=== PATIENT | female | born 1955 | race Two or more races ===

== ENCOUNTER → 2021-03-08 | Outpatient (CLI) | payer MEDICARE, MEDICAID ==
[~2021-03-08] MED LIST: AMIT25TA PO; METF100010 PO; OMEP40CA7 PO; OXYC1TAB15 PO; OXYC1TAB17 PO; OXYC1TAB19 PO; PIOG30TA41 PO; SULF1TAB24 PO
--- NOTE | 2021-03-08 10:36 | RAD ---
EXAM: Bilateral digital diagnostic mammogram with tomosynthesis; bilateral breast sonogram. HISTORY: 65-year-old female presents for evaluation of bilateral breast pain months status post reduc tion plasty surgery.. TECHNIQUE: Full-field digital craniocaudal and mediolateral oblique 2D and 3D tomosynthesis images of both breasts are obtained for evaluation. Computer aided detection was applied. Sonographic imaging of both breasts targeted to sites of reported pain was also performed. COMPARISON: 01/01/2019, 03/17/2017, 10/23/2014 BREAST PARENCHYMAL DENSITY: Level A - Mostly fat. FINDINGS: There are postoperative changes within the periareolar and posterior bilateral breasts cons istent with the reported history of interval reduction mammoplasty surgery. There is no new suspiciou s mass, calcification or architectural distortion. There are stable small circumscribed nodular densi ties within the right greater than left breast. The absence of significant interval record changer assembler a gre ater than 6 year interval favors a benign etiology such as cysts or intramammary lymph nodes. Sonographic imaging of both breasts demonstrates no suspicious finding within the site of pain along reduction plasty scars. There is no mass or cyst. There is no hematoma or abscess. There are benign-a ppearing axillary lymph nodes. IMPRESSION: 1. No new suspicious mammographic or sonographic finding. 2. Findings consistent with interval reduction mammoplasty surgery. 3. BI-RADS Category 2: Benign finding(s). Annual mammography is recommended. If your mammogram demonstrates that you have dense breast tissue, which could hide abnormalities, and if you have other risk factors for breast cancer that have been identified, you might benefit from s upplemental screening tests that may be suggested by your ordering physician. Dense breast tissue, i n and of itself, is a relatively common condition. This information is not provided to cause undue c oncern, but rather to raise your awareness and to promote discussion with your physician regarding th e presence of other risk factors, in addition to dense breast tissue. A report of your mammography re sults will be sent to you and your physician. You should contact your physician if you have any ques tions or concerns regarding this report. Mammography is a sensitive method for finding small breast cancers, but it does not detect them all a nd is not a substitute for careful clinical examination. A negative mammogram does not negate a clin ically suspicious finding and should not result in delay in biopsying a clinically suspicious abnorma lity. PQRS compliance statement - Patient information was entered into a reminder system with a target due date for the next mammogram. "Our facility is accredited by the [employer] Mammography [employer]." Electronically signed by: Mouna Bassett MD (03/08/2021 10:34 AM) [id number]
--- NOTE | 2021-03-09 08:33 | RAD ---
EXAM: Left hip sonogram. HISTORY: Palpable left hip lump status post tummy tuck surgery. TECHNIQUE: Sonographic imaging of the left hip at the site of palpable concern was performed. COMPARISON: None. FINDINGS: There are tiny hypoechoic lesions within the superficial soft tissues of the left hip under lying a surgical scar, measuring 5 mm and 4 mm. The imaging appearance favors tiny foci of fat necros is or tiny residual postoperative seromas. IMPRESSION: Tiny foci of suspected fat necrosis or tiny residual postoperative seromas underlying a s urgical scar within the left hip soft tissues. No suspicious lesion is seen. Electronically signed by: Mouna Bassett MD (03/09/2021 8:30 AM) [id number]
== END ==
LOC: MERGE 09:11 → MAMMO 09:11
PROVIDERS: ATTEND Physician Assistant
DX: R92.8 Other abnormal and inconclusive findings on diagnostic imaging of breast (principal); N64.4 Mastodynia
CPT/HCPCS: 76641; 76881; 77066; G0279; 77062